=== PATIENT | female | born 1935 | race Caucasian/White ===

== ENCOUNTER 2016-11-11 01:20 | Inpatient (IN) | payer OTHER, MEDICARE ==
[~2016-11-11] VITALS: Ht 149.9 cm; Wt 54.4 kg
[2016-11-11] VITALS (8 sets, daily range): BP systolic 132–197; BP diastolic 56–94
--- NOTE | ~2016-11-11 | HC ---
[facility] [place] [address] CONSULTATION Name: KAREN JESUS Room #: 218-P ADM IN M.R.#: [id number] Admission: 11/11/16 Attend Phys: Kiana Holden MD Discharge: Date of : 33 Report #: [id number] THIS REPORT FOR: //name// CC: Anibal Holden HISTORY OF PRESENT ILLNESS: The patient is an 81-year-old woman with a complicated history including an inferior myocardial infarction in 2009 with associated ventricular fibrillation and prolonged resuscitative efforts. She made a complete and full recovery from this. She has had several angiogram since then, the most recently in 2011 which demonstrated moderate distal LAD stenosis, occluded diagonal branches, a previously stented marginal branch, which exhibited no evidence of restenosis and an occluded right coronary with collateralization. She has had pain off and on for many years that has been difficult to evaluate because of severe debilitating arthritis. She is not a candidate for stress testing because of immobility of her arms. Nevertheless on medical therapy, she has done well. Last night, she reports trouble sleeping. She developed shortness of breath and chest pressure on the right side of her chest. The pain has persisted since about 5:30 this morning. Nitroglycerin failed to relieve the pain. Her EKG demonstrated no acute ST or T-wave changes. Her initial troponin is negative. She has been around her oshlqye-ov-iwq who has pneumonia. She has had chills but denies fevers. She denies cough. ALLERGIES: Include CODEINE, NIACIN, PENICILLIN, SULFA, TEGRETOL. MEDICATIONS: Include Lasix 20 mg daily, sertraline 50 mg daily, Zantac, aspirin 81 mg daily, atorvastatin 40 mg daily. Her past history and medical records have been reviewed. Past history is notable for prior hysterectomy, arthritis, hypertension, coronary disease, diverticulosis. SOCIAL HISTORY: She has never been a smoker. . FAMILY HISTORY: Unremarkable for premature coronary disease. REVIEW OF SYSTEMS: All systems negative except as that noted above. PHYSICAL EXAMINATION: GENERAL: A pleasant elderly woman. She is tearful. VITAL SIGNS: Blood pressure is 160/69, heart rate of 80 and regular. She is afebrile, 4 feet 11 inches tall, 120 pounds. HEENT: There are neither xanthelasma, subcutaneous xanthomata, oral mucosal or digital cyanosis or kyphoscoliosis present. CHEST: Clear to auscultation and percussion. CARDIOVASCULAR: Regular rate and rhythm with normal S1, S2. [place] [address] CONSULTATION Name: KAREN JESUS Room #: [facility] IN M.R.#: [id number] Admission: 11/11/16 Attend Phys: Kiana Holden MD Discharge: Date of : 33 Report #: [id number] ABDOMEN: Soft and nontender. EXTREMITIES: Without cyanosis, clubbing or edema. Radial pulses are 2+. NEUROLOGIC: She is alert with a nonfocal exam. LABORATORY DATA: EKG, sinus bradycardia. Nonspecific T-wave abnormality, poor septal R-wave progression. Sodium is 140, potassium 3.7, creatinine 1.3. White count 6.1, hemoglobin 11, hematocrit 34, platelet count 157. RADIOLOGICAL DATA: Chest x-ray demonstrates scarring at the bases. IMPRESSION: 1. Chest pain with mixed features for ischemia. 2. 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 3. Hypertension. 4. Chronic systolic heart failure, compensated. 5. Dyslipidemia. 6. Debilitating arthritis. RECOMMENDATIONS: 1. Serial cardiac enzymes. 2. Follow up electrocardiogram. 3. Echocardiogram with Doppler. Further thoughts will be forthcoming based on this evaluation. Thank you for asking me to participate in the patient's care. <ELECTRONICALLY SIGNED> By: Diogenes Evans MD, FACC 11/12/16 0909 0729 1139 Diogenes Evans MD, FACC /nt
--- NOTE | ~2016-11-11 | 2DMMODE ---
[facility] [place] [address] 2 D/M-MODE ECHOCARDIOGRAM Name: ANN MARIEKAREN JUJU Room #: 218-P ADM IN M.R.#: [id number] Admission: 11/11/16 Attend Phys: Kiana Holden MD Discharge: Date of : 33 Date of Service: 11/11/16 1423 Report #: [id number] THIS REPORT FOR: //name// APPROVED REPORT Study performed: 11/11/2016 11:13:07 EXAM: Comprehensive 2D, Doppler, and color-flow Echocardiogram Patient Location: Bedside Room #: 218 Blood Pressure: 146/68 mmHg HR: 48 bpm Other Information Study Quality: Adequate Indications Cardiomyopathy Chest Pain Hypertension/HDD 2D Dimensions RVDd: 35.94 mm IVC: 16.00 mm Volumes Left Atrial Volume (Systole) Single Plane 4CH: 32.30 mL Single Plane 2CH: 42.01 mL LA ESV Index: 28.00 mL/m2 Aortic Valve AoV Peak Tano.: 2.01 m/s AO Peak Gr.: 16.55 mmHg LV Max P.08 mmHg LV Max: 0.88 m/s Mitral Valve E/A Ratio: 0.5 MV Decel. Time: 467.39 ms MV E Max Tano.: 0.46 m/s MV A Tano.: 0.92 m/s MV PHT: 135.54 ms [facility] [address] [place] [address] 2 D/M-MODE ECHOCARDIOGRAM Name: KAREN JESUS Room #: 218-P ADM IN M.R.#: [id number] Admission: 11/11/16 Attend Phys: Kiana Holden MD Discharge: Date of : 33 Date of Service: 11/11/16 1423 Report #: [id number] Pulmonary Valve PV Peak Tano.: 1.13 m/s PV Peak Gr.: 5.09 mmHg Pulmonary Vein P Vein S: 27.0 m/s P Vein D: 19.4 m/s P Vein A Dur.: 23.1 m/s PVa Duration: 111 Tricuspid Valve TR Peak Tano.: 2.60 m/s RAP Estimate: 5.00 mmHg TR Peak Gr.: 27.13 mmHg Left Ventricle The left ventricle is normal size. There is hypokinesis in the apex wall. There is hypokinesis in the septal wall. There is hypokinesis in the inferior wall. There is normal left ventricular wall thickness. Left ventricular systolic function is moderately decreased. LVEF is 40-45%. Grade I - abnormal relaxation pattern. Right Ventricle The right ventricle is normal size. The right ventricular systolic function is normal. Atria The left atrium size is normal. The right atrium size is normal. Aortic Valve Aortic valve is calcified. Mitral Valve The mitral valve is normal in structure. Mild mitral regurgitation. No evidence of mitral valve stenosis. Tricuspid Valve The tricuspid valve is normal in structure. There is mild tricuspid regurgitation. The right atrial pressure is estimated at 5 mmHg. There is no pulmonary hypertension. The estimated PAP was 32 mmHg. Pulmonic Valve The pulmonary valve is normal in structure. Trace pulmonic regurgitation. Great Vessels [facility] [address] [place] [address] 2 D/M-MODE ECHOCARDIOGRAM Name: KAREN JESUS Room #: 218-[facility] IN M.R.#: [id number] Admission: 11/11/16 Attend Phys: Kiana Holden MD Discharge: Date of : 33 Date of Service: 11/11/16 1423 Report #: [id number] The aortic root is normal in size. IVC is normal in size and collapses >50% with inspiration. Pericardium There is no pericardial effusion. <Conclusion> Left ventricular systolic function is moderately decreased. There is hypokinesis in the septum and inferior marquez. EF 40-45%. Grade I diastolic dysfunction Aortic valve is calcified, mild stenosis. No insufficiency. The mitral valve is normal in structure. Mild mitral regurgitation. Pulmonary artery pressure of 35mmHg There is no pericardial effusion. <ELECTRONICALLY SIGNED> By: Diogenes Evans MD, [facility] 11/11/16 1423 1423 1423 Diogenes Evans MD, FACC /INF
--- NOTE | ~2016-11-11 | EKG ---
[place] [address] [facility] [place] [address] ELECTROCARDIOGRAM REPORT Name: VIVI JESUSLINE JUJU Room #: 218-P ADM IN M.R.#: [id number] Admission: 11/11/16 Attend Phys: Kiana Holden MD Discharge: Date of : 33 Report #: [id number] THIS REPORT FOR: //name// [facility] ED Test Date: 2016-11-11 Test Time: 01:28:50 Pat Name: KAREN JESUS Department: Room: 218 Gender: F Nurseryperson: PRINCESS : 1935 Requested By: Beatriz Vidal Order Number: [id number] MD: Diogenes Evans Measurements Intervals [place] Rate: 56 P: -7 [place]: 161 QRS: -26 QRSD: 94 T: 120 QT: 399 QTc: 386 Interpretive Statements Sinus rhythm LVH by voltage Inferior infarct, old Septal infarct, age indeterminate Compared to ECG 06/25/2016 20:58:56 nonspecific changes in the ST-T wave segments Electronically Signed On 11-11-2016 9:26:41 CDT by Diogenes Evans [email or web address] <ELECTRONICALLY SIGNED> By: Diogenes Evans MD, [facility] 11/11/16 0926 0128 0128 Diogenes Evans MD, [facility] /EPI
--- NOTE | ~2016-11-11 | D ---
[facility] [place] [address] DISCHARGE SUMMARY Name: KAREN JESUS Room #: 218-P [facility] IN M.R.#: [id number] Admission: 11/11/16 Attend Phys: Kiana Holden MD Discharge: 11/12/16 Date of : 33 Report #: [id number] THIS REPORT FOR: //name// CC: Anibal Holden DATE OF SERVICE: 11/12/2016 DATE OF ADMISSION: 11/11/2016. DATE OF DISCHARGE: 11/12/2016. PRIMARY CARE PHYSICIAN: Anibal Bob M.D. DISCHARGE DIAGNOSES: 1. Chest pain, likely secondary to hypertensive urgency, now resolved. 2. Coronary artery disease with prior stenting. 3. Moderate ischemic cardiomyopathy. 4. Chronic systolic heart failure. 5. Dyslipidemia. 6. Arthritis. 7. Thyroid nodule. 8. Symptomatic hemorrhoids, treated in the hospital. CONSULTS: Cardiology. PROCEDURES: None. HOSPITAL COURSE: The patient is an 81-year-old female with a history of coronary artery disease, prior stents, ischemic cardiomyopathy and chronic systolic CHF, who presented to the ER secondary to chest pain. Please see details of admission dictated by on 11/11. Workup in the ER included negative EKG and cardiac enzymes. However, pressures were elevated in the 190s. She was admitted and cardiology was consulted. Since admission, she has had no further chest pain. D-dimer came back elevated and a CT angio was done that was negative for anything acute, other than thyroid nodule. She had a 2D echo that showed no new changes, although she does have ischemic cardiomyopathy with an ejection fraction of 40% to 45%, with mild mitral regurgitation and mild tricuspid regurgitation. Her only other complaint is rectal pain from her hemorrhoids. She has had procedure done in the past that was not successful in eliminating the pain. She was requesting to see a colorectal surgeon and seen. They recommended that she follow up with primary care doctor in this regards. Otherwise, she will also follow up with primary care doctor for thyroid ultrasound as well. [address] [address] DISCHARGE SUMMARY Name: KAREN JESUS Room #: 218-P [facility] IN M.R.#: [id number] Admission: 11/11/16 Attend Phys: Kiana Holden MD Discharge: 11/12/16 Date of : 33 Report #: [id number] DISCHARGE DISPOSITION: To home. DISCHARGE PHYSICAL EXAMINATION: VITAL SIGNS: Temperature of 97, pulse 54, blood pressure 184/80 and O2 sat is 97% on room air. GENERAL: She is awake, alert, answering question appropriately, no acute respiratory distress. HEENT: Normocephalic, atraumatic. Pupils are equal. NECK: Supple. CARDIOVASCULAR: Regular rate and rhythm. No murmurs. LUNGS: Clear to auscultation bilaterally. No crackles or wheezes. ABDOMEN: Soft. No distention or tenderness. EXTREMITIES: No edema. NEUROLOGIC: Nonfocal. DISCHARGE MEDICATIONS: Aspirin 81 daily, Lipitor 40 daily, Coreg 6.125, Cozaar 50 daily, 25 daily and MiraLax 17 grams daily. DIET: Cardiac, low-sodium, fluid-restricted diet. ACTIVITY: As tolerated. FOLLOWUP: With primary care in 1 week with repeat labs, thyroid ultrasound and a colorectal surgery referral. Discharge planning took 32 minutes. I explained her the discharge diagnoses, treatment plan and appropriate followup in detail. She had no other questions. By: 1156 1228 My Rashad Holden MD /nt
--- NOTE | ~2016-11-11 | EKG ---
[address] [place] [address] ELECTROCARDIOGRAM REPORT Name: KAREN JESUS Room #: 218- ADM IN M.R.#: [id number] Admission: 11/11/16 Attend Phys: Kiana Holden MD Discharge: Date of : 33 Report #: [id number] THIS REPORT FOR: //name// [facility] Test Date: 2016-11-12 Test Time: 07:30:24 Pat Name: KAREN JESUS Department: Room: 218 P Gender: F Fnp: navi : 1935 Requested By: Diogenes Evans Order Number: [id number] MD: Diogenes Evans Measurements Intervals [place] Rate: 51 P: 7 [place]: 175 QRS: -42 QRSD: 102 T: 46 QT: 402 QTc: 371 Interpretive Statements Sinus bradycardia Left anterior fascicular block Anterior infarct, old Baseline wander in lead(s) II,III,aVF Compared to ECG 11/11/2016 01:28:50 no significant change was found Electronically Signed On 11-12-2016 9:06:01 CDT by Diogenes Evans [email or web address] <ELECTRONICALLY SIGNED> By: Diogenes Evans MD, [facility] 11/12/16 0906 9 9 Diogenes Evans MD, [facility] /EPI
[~2016-11-11 01:20] MED LIST: ADULT LOW DOSE81 MG PO; ADVIL100 M2 PO; ALDACTONE25 MG OR; ALDACTONE25 MG PO; AMLODIPINE BESYL5 MG PO; ANALPRAM-HC 2.530 GM; APAP500 PO; ASPIRIN325 PO; B12INJ PO; CARDIZEM CD120 MG PO; CARVEDILOL25 MG PO; CARVEDILOL6.25 MG PO; CIPRO500 M1 PO; CIPRO500 MG PO; COREG PO; COZAAR 25 MG TA25 MG PO; COZAAR 50 MG TA50 M1 PO; COZAAR PO; FLAGYL500 MG PO; FUROSEMIDE 20 M20 MG PO; HYDROCORTISONE30 G9 RECTAL; HYZAAR PO; IBUPROFEN 200200 M1 PO; LASIX 20 MG TAB20 MG PO; LEVAQUIN 500 M500 MG PO; LIPITOR40 MG PO; NORCO 5-325 TA1 EACH PO; OMEPRAZOLE20 M2 PO; PAIN RELIEVER500 M3 PO; PLAVIX 75 MG TA75 MG; PLAVIX 75 MG TA75 MG PO; PRAVASTATIN SOD40 MG PO; VITAMIN B-12500 MCG PO; ZANTAC 150MG T150 MG PO; ZOLOFT 50 MG TA50 M1 PO; ZOLOFT50 MG PO
[2016-11-11 01:43] LABS: ABSOLUTE NEUTROPHILS 2.9 thou/uL (1.4-8.2); BASOPHILS 1.1 % (0.0-2.0); EOSINOPHILS 2.9 % (0.0-3.0); HEMATOCRIT 34.1 % (37.0-47.0); HEMOGLOBIN 11.3 gm/dL (12.0-15.0); LYMPHOCYTES 38.7 % (24.0-44.0); MCH 29.6 pg (26.0-34.0); MCHC 33.3 g/dL (28.0-37.0); MCV 88.9 fL (80.0-100.0); MONOCYTES 9.3 % (1.0-8.0); PLATELET COUNT 157 thou/uL (150-400); RBC 3.83 mil/uL (4.20-5.00); RDW 15.2 % (10.5-14.5); WBC 6.1 thou/uL (4.0-11.0)
[2016-11-11 01:51] LABS: ANION GAP 11 mmol/L (7-16); BUN 33 mg/dL (7-18); CHLORIDE 104 mmol/L (98-107); CO2 25 mmol/L (21-32); CREATININE 1.3 mg/dL (0.6-1.0); GLUCOSE 92 mg/dL (74-106); POTASSIUM 3.7 mmol/L (3.5-5.1); SODIUM 140 mmol/L (136-145)
[2016-11-11 01:52] LABS: MANUAL DIFF NO
[2016-11-11 01:56] LABS: APTT 26.1 Seconds (24.5-32.8); INR 1.1; PROTIME 11.3 Seconds (9.3-11.4)
[2016-11-11 02:03] LABS: ALBUMIN 3.5 g/dL (3.4-5.0); ALKALINE PHOSPHATASE 113 U/L (46-116); NT-PRO BRAIN NAT PEPTIDE 716 pg/mL (<300); SGOT 19 U/L (15-37); SGPT 25 U/L (30-65); TOTAL BILIRUBIN 0.4 mg/dL (<0.1-1.0); TOTAL PROTEIN 6.7 g/dL (6.4-8.2); TROPONIN-I < 0.04 ng/mL (<0.04-0.07)
[2016-11-11] MEDS ORDERED: MYRBETRIQ25 MG PO (02:10)
[2016-11-11] MEDS ORDERED: MIRALAX17 G1 PO (04:05)
[2016-11-11 07:49] LABS: CHOLESTEROL 138 mg/dL (<200); HDL CHOLESTEROL 54 mg/dL (>40); LDL CHOLESTEROL 70 mg/dL (<100); TC:HDL 2.6 Ratio (Not establshd); TRIGLYCERIDE 73 mg/dL (<150); VLDL 15 mg/dL (<40)
[2016-11-12 04:09] LABS: HEMATOCRIT 31.7 % (37.0-47.0); HEMOGLOBIN 10.6 gm/dL (12.0-15.0); MCH 29.5 pg (26.0-34.0); MCHC 33.4 g/dL (28.0-37.0); MCV 88.3 fL (80.0-100.0); RBC 3.59 mil/uL (4.20-5.00); RDW 15.1 % (10.5-14.5); WBC 5.6 thou/uL (4.0-11.0)
[2016-11-12 04:14] LABS: CALCIUM 8.4 mg/dL (8.5-10.1); POTASSIUM 4.3 mmol/L (3.5-5.1)
[2016-11-12 05:00] VITALS: BP 147/77
[2016-11-12 07:30] VITALS: BP 184/80
[2016-11-12 10:08] VITALS: BP 184/80
[2016-11-12] MEDS ORDERED: ATORVASTATIN CA40 MG PO (10:14)
[2016-11-12] MEDS ORDERED: COZAAR 50 MG TA50 M2 PO (10:14)
[2016-11-12] MEDS ORDERED: ASPIR 8181 MG PO (10:14)
[2016-11-12 14:16] VITALS: BP 184/80
== END 2016-11-12 11:00 | disposition home or self-care (01) | DRG 304 ==
LOC: ER 01:20 → 2N 02:30 → EROBS 02:30 → 2N 02:54
PROVIDERS: Emergency Medicine; Family Medicine; Nurse Practitioner
DX: I16.0 Hypertensive urgency (principal); N17.0 Acute kidney failure with tubular necrosis; I50.22 Chronic systolic (congestive) heart failure; Z96.653 Presence of artificial knee joint, bilateral; M54.30 Sciatica, unspecified side; K57.90 Diverticulosis of intestine, part unspecified, without perforation or abscess without bleeding; R53.81 Other malaise; I11.0 Hypertensive heart disease with heart failure; I25.5 Ischemic cardiomyopathy; I25.10 Atherosclerotic heart disease of native coronary artery without angina pectoris; M19.90 Unspecified osteoarthritis, unspecified site; E04.1 Nontoxic single thyroid nodule; K64.8 Other hemorrhoids; E78.5 Hyperlipidemia, unspecified; Z95.5 Presence of coronary angioplasty implant and graft; Z82.49 Family history of ischemic heart disease and other diseases of the circulatory system; I25.2 Old myocardial infarction; Z88.6 Allergy status to analgesic agent; Z88.1 Allergy status to other antibiotic agents; Z88.8 Allergy status to other drugs, medicaments and biological substances; Z88.0 Allergy status to penicillin; Z88.2 Allergy status to sulfonamides; Z90.710 Acquired absence of both cervix and uterus
CPT/HCPCS: 10081

== ENCOUNTER 2017-02-21 15:26 | Emergency (ER) | payer OTHER, MEDICARE ==
[~2017-02-21] VITALS: Ht 149.9 cm; Wt 54.4 kg
--- NOTE | ~2017-02-21 | EKG ---
[place] [address] [facility] [place] [address] ELECTROCARDIOGRAM REPORT Name: KAREN JESUS Room #: DEP [facility]#: [id number] Admission: 02/21/17 Attend Phys: Discharge: 02/21/17 Date of : 33 Report #: [id number] THIS REPORT FOR: //name// [facility] ED Test Date: 2017-02-21 Test Time: 15:32:06 Pat Name: KAREN JESUS Department: Room: Gender: F Field Service Supervisor: Cal FORTE : 1935 Requested By: Grant Patel Order Number: [id number] MD: Diogenes Evans Measurements Intervals [place] Rate: 55 P: [place]: QRS: -35 QRSD: 110 T: 90 QT: 453 QTc: 434 Interpretive Statements Sinus bradycardia Leftward axis Nonspecific T wave abnormality Compared to ECG 11/12/2016 07:30:24 No significant change was found Electronically Signed On 02-23-2017 8:32:55 CDT by Diogenes Evans [email or web address] <ELECTRONICALLY SIGNED> By: Diogenes Evans MD, [facility] 02/23/17 0832 31 31 Diogenes Evans MD, [facility] /EPI
[~2017-02-21 15:26] MED LIST changes: +ASPIR 8181 MG PO; +ATORVASTATIN CA40 MG PO; +COZAAR 50 MG TA50 M2 PO; +MIRALAX17 G1 PO; +MYRBETRIQ25 MG PO
[2017-02-21 15:53] LABS: ABSOLUTE NEUTROPHILS 3.1 thou/uL (1.4-8.2); BASOPHILS 1.1 % (0.0-2.0); EOSINOPHILS 2.7 % (0.0-3.0); HEMATOCRIT 33.5 % (37.0-47.0); HEMOGLOBIN 11.3 gm/dL (12.0-15.0); LYMPHOCYTES 28.6 % (24.0-44.0); MCH 30.2 pg (26.0-34.0); MCHC 33.6 g/dL (28.0-37.0); MCV 89.8 fL (80.0-100.0); MONOCYTES 10.7 % (1.0-8.0); PLATELET COUNT 163 thou/uL (150-400); POLYS 56.9 % (36.0-66.0); RBC 3.73 mil/uL (4.20-5.00); RDW 14.8 % (10.5-14.5); WBC 5.4 thou/uL (4.0-11.0)
[2017-02-21 15:58] LABS: MANUAL DIFF NO
[2017-02-21 16:03] LABS: ANION GAP 9 mmol/L (7-16); BUN 43 mg/dL (7-18); CALCIUM 8.7 mg/dL (8.5-10.1); CHLORIDE 106 mmol/L (98-107); CO2 28 mmol/L (21-32); CREATININE 1.5 mg/dL (0.6-1.0); GLUCOSE 115 mg/dL (74-106); POTASSIUM 3.9 mmol/L (3.5-5.1); SODIUM 143 mmol/L (136-145)
[2017-02-21 16:16] LABS: NT-PRO BRAIN NAT PEPTIDE 916 pg/mL (<300); TROPONIN-I < 0.04 ng/mL (<0.04-0.07)
== END 2017-02-21 19:11 | disposition home or self-care (01) ==
LOC: ER 15:26
PROVIDERS: Nurse Practitioner
DX: M06.811 Other specified rheumatoid arthritis, right shoulder (principal); I10 Essential (primary) hypertension; D25.9 Leiomyoma of uterus, unspecified; Z88.8 Allergy status to other drugs, medicaments and biological substances; Z96.653 Presence of artificial knee joint, bilateral; Z98.890 Other specified postprocedural states; Z88.5 Allergy status to narcotic agent; Z88.1 Allergy status to other antibiotic agents; Z88.2 Allergy status to sulfonamides; Z88.6 Allergy status to analgesic agent

== ENCOUNTER 2017-04-12 11:48 | Emergency (ER) | payer OTHER, MEDICARE ==
[~2017-04-12] VITALS: Ht 162.6 cm; Wt 59.0 kg
[2017-04-12] MEDS ORDERED: NORCO 5-325 TA1 EACH PO (13:04)
== END 2017-04-12 13:35 | disposition home or self-care (01) ==
LOC: ER 11:48
DX: M19.012 Primary osteoarthritis, left shoulder (principal); I11.9 Hypertensive heart disease without heart failure; I25.10 Atherosclerotic heart disease of native coronary artery without angina pectoris; I25.2 Old myocardial infarction; Z96.653 Presence of artificial knee joint, bilateral; Z87.39 Personal history of other diseases of the musculoskeletal system and connective tissue; Z98.890 Other specified postprocedural states; Z88.5 Allergy status to narcotic agent; Z88.1 Allergy status to other antibiotic agents; Z88.7 Allergy status to serum and vaccine; Z88.0 Allergy status to penicillin; Z88.2 Allergy status to sulfonamides; Z88.8 Allergy status to other drugs, medicaments and biological substances

== ENCOUNTER 2017-08-14 14:12 | Emergency (ER) | payer OTHER, MEDICARE ==
[~2017-08-14] VITALS: Ht 149.9 cm; Wt 54.5 kg
[2017-08-14 14:54] VITALS: BP 168/88
[2017-08-14 15:36] LABS: URINE BILIRUBIN NEGATIVE (Negative); URINE BLOOD 1+ (Negative); URINE CLARITY CLEAR; URINE COLOR YELLOW; URINE GLUCOSE-RANDOM* NEGATIVE (Negative); URINE KETONES NEGATIVE (Negative); URINE LEUKOCYTES-REFLEX NEGATIVE (Negative); URINE NITRITE-REFLEX NEGATIVE (Negative); URINE PROTEIN (DIPSTICK) NEGATIVE (Negative); URINE SPECIFIC GRAVITY <= 1.005 (1.005-1.035); URINE UROBILINOGEN 0.2 E.U./dl (0.2-1.0)
[2017-08-14 15:42] LABS: MUCUS None Seen strn/LPF (None Seen); SQUAMOUS 0-3 Few /LPF (0-3)
[2017-08-14 15:43] LABS: BACTERIA-REFLEX None Seen /HPF (None Seen); CASTS None Seen /LPF (None Seen); CRYSTALS None Seen /LPF (None Seen); URINE RBC 0-2 Rare /HPF (0-2); URINE WBC-REFLEX 0-5 Rare /HPF (0-5)
[2017-08-14] MEDS ORDERED: PYRIDIUM200 MG PO (15:57)
== END 2017-08-14 16:20 | disposition home or self-care (01) ==
LOC: ER 14:12
PROVIDERS: Nurse Practitioner Family
DX: R30.0 Dysuria (principal); M19.90 Unspecified osteoarthritis, unspecified site; I10 Essential (primary) hypertension; Z96.653 Presence of artificial knee joint, bilateral; Z98.890 Other specified postprocedural states; Z88.8 Allergy status to other drugs, medicaments and biological substances; Z88.5 Allergy status to narcotic agent; Z88.1 Allergy status to other antibiotic agents; Z88.6 Allergy status to analgesic agent; Z88.7 Allergy status to serum and vaccine; Z88.0 Allergy status to penicillin; Z88.2 Allergy status to sulfonamides

== ENCOUNTER 2017-08-23 13:39 | Emergency (ER) | payer OTHER, MEDICARE ==
[~2017-08-23] VITALS: Ht 157.5 cm; Wt 49.9 kg
--- NOTE | ~2017-08-23 | EKG ---
[place] [address] [address] [place] [address] ELECTROCARDIOGRAM REPORT Name: KAREN JESUS [facility] [id number] Admission: 08/23/17 Attend Phys: Discharge: 08/23/17 Date of : 33 Report #: [id number] THIS REPORT FOR: //name// [facility] ED Test Date: 2017-08-23 Test Time: 15:16:27 Pat Name: KAREN JESUS Department: Room: Gender: F Service Center Representative: Cal VELASQUEZ : 1935 Requested By: Tosin Bar Order Number: [id number] MD: Diogenes Evans Measurements Intervals [place] Rate: 52 P: 17 [place]: 159 QRS: -41 QRSD: 107 T: 57 QT: 432 QTc: 402 Interpretive Statements Sinus bradycardia Atrial premature complex Leftward axis Anteroseptal infarct, old Compared to ECG 02/21/2017 15:32:06 Atrial premature complex(es) now present Electronically Signed On 08-23-2017 17:21:44 BARREL WASHER MACHINE by Diogenes Evans [email or web address] <ELECTRONICALLY SIGNED> By: Diogenes Evans MD, [facility] 08/23/17 1107 1516 1516 Diogenes Evans MD, [facility] /EPI
[~2017-08-23 13:39] MED LIST changes: +PYRIDIUM200 MG PO
[2017-08-23 14:11] LABS: URINE BILIRUBIN NEGATIVE (Negative); URINE BLOOD NEGATIVE (Negative); URINE CLARITY CLEAR; URINE COLOR YELLOW; URINE GLUCOSE-RANDOM* TRACE (Negative); URINE KETONES NEGATIVE (Negative); URINE LEUKOCYTES-REFLEX NEGATIVE (Negative); URINE PROTEIN (DIPSTICK) NEGATIVE (Negative); URINE SPECIFIC GRAVITY <= 1.005 (1.005-1.035)
[2017-08-23 14:12] LABS: URINE NITRITE-REFLEX POSITIVE (Negative)
[2017-08-23 14:21] LABS: CASTS None Seen /LPF (None Seen); SQUAMOUS None Seen /LPF (0-3)
[2017-08-23 14:22] LABS: BACTERIA-REFLEX 1-9 Few /HPF (None Seen); CRYSTALS None Seen /LPF (None Seen); URINE RBC None Seen /HPF (0-2); URINE WBC-REFLEX 0-5 Rare /HPF (0-5)
[2017-08-23 15:34] LABS: ABSOLUTE NEUTROPHILS 3.6 thou/uL (1.4-8.2); EOSINOPHILS 1.8 % (0.0-3.0); HEMATOCRIT 34.4 % (37.0-47.0); HEMOGLOBIN 11.3 gm/dL (12.0-15.0); LYMPHOCYTES 21.2 % (24.0-44.0); MCH 29.9 pg (26.0-34.0); MCHC 32.8 g/dL (28.0-37.0); MCV 91.2 fL (80.0-100.0); MONOCYTES 9.6 % (1.0-8.0); PLATELET COUNT 215 thou/uL (150-400); POLYS 66.4 % (36.0-66.0); RBC 3.77 mil/uL (4.20-5.00); RDW 14.7 % (10.5-14.5); WBC 5.4 thou/uL (4.0-11.0)
[2017-08-23 15:41] LABS: CREATININE 1.3 mg/dL (0.6-1.0)
[2017-08-23] MEDS ORDERED: KEFLEX500 M1 PO (15:55)
[2017-08-23 16:35] VITALS: BP 160/88
== END 2017-08-23 16:52 | disposition home or self-care (01) ==
LOC: ER 13:39
PROVIDERS: Emergency Medicine
DX: N39.0 Urinary tract infection, site not specified (principal); I10 Essential (primary) hypertension; M19.90 Unspecified osteoarthritis, unspecified site; Z96.653 Presence of artificial knee joint, bilateral; M54.30 Sciatica, unspecified side; Z88.0 Allergy status to penicillin; Z88.2 Allergy status to sulfonamides; Z88.1 Allergy status to other antibiotic agents

== ENCOUNTER 2017-09-09 10:59 | Inpatient (IN) | payer OTHER, MEDICARE ==
[~2017-09-09] VITALS: Ht 149.9 cm; Wt 52.2 kg
--- NOTE | ~2017-09-09 | 2DMMODE ---
[facility] [address] [place] [address] 2 D/M-MODE ECHOCARDIOGRAM Name: ANN MARIEKAREN JUJU Room #: 350-P ADM IN M.R.#: [id number] Admission: 09/09/17 Attend Phys: Sammy Guerrero, Discharge: Date of : 33 Date of Service: 09/09/17 1648 Report #: [id number] THIS REPORT FOR: //name// APPROVED REPORT Study performed: 09/09/2017 15:16:00 EXAM: Comprehensive 2D, Doppler, and color-flow Echocardiogram Patient Location: Bedside Room #: 350 Status: routine BSA: 1.51 HR: 50 bpm BP: 145/55 mmHg Other Information Study Quality: Adequate Indications Dyspnea CAD Hypertension/HDD 2D Dimensions RVDd: 29.96 mm LVEF(%): 53.53 (>50%) IVSd: 14.70 (7-11mm) LVOT Diam: 17.37 (18-24mm) LVDd: 39.23 mm PWd: 14.54 (7-11mm) Ascending Ao: 29.67 (22-36mm) LVDs: 28.57 (25-40mm) Aortic Root: 29.64 mm Tellez's LVEF: 53.53 % Volumes Left Atrial Volume (Systole) Single Plane 4CH: 66.51 mL Single Plane 2CH: 32.07 mL LA ESV Index: 34.00 mL/m2 Aortic Valve AoV Peak Tano.: 2.39 m/s AO Peak Gr.: 22.92 mmHg LVOT Max P.97 mmHg AO Mean Gr.: 10.00 mmHg LVOT Mean P.71 mmHg AO V2 Mean: 1.42 m/s LVOT Max V: 1.00 m/s AO V2 VTI: 55.52 cm LVOT Mean V: 0.59 m/s DIONI (VTI): 1.18 cm2 LVOT V1 VTI: 27.64 cm DIONI Vmax: 0.99 cm2 [facility] [place] [address] [place] [address] 2 D/M-MODE ECHOCARDIOGRAM Name: KAREN JESUS Room #: 350-[facility] IN .R.#: [id number] Admission: 09/09/17 Attend Phys: Sammy Guerrero, Discharge: Date of : 33 Date of Service: 09/09/17 1648 Report #: [id number] SV (LVOT): 65.47 mL Mitral Valve E/A Ratio: 0.6 MV Decel. Time: 347.51 ms MV E Max Tano.: 0.58 m/s MV A Tano.: 1.02 m/s MV PHT: 100.78 ms IVRT: 147.64 ms Pulmonary Valve PV Peak Tano.: 0.82 m/s PV Peak Gr.: 2.68 mmHg Pulmonary Vein P Vein S: 0.57 m/s P Vein A: 0.29 m/s P Vein D: 0.44 m/s P Vein A Dur.: 170.7 msec P Vein S/D Ratio: 1.30 Tricuspid Valve TR Peak Tano.: 2.70 m/s RAP Estimate: 8.00 mmHg TR Peak Gr.: 29.20 mmHg PA Pressure: 38.00 mmHg Left Ventricle The left ventricle is normal size. Moderate concentric left ventricular hypertrophy. The left ventricular systolic function is normal. The left ventricular ejection fraction is within the normal range. LVEF is 55-60%. Mild diastolic dysfunction is present (impaired relaxation pattern). Right Ventricle The right ventricle is normal size. The right ventricular systolic function is normal. Atria Left atrium is at the upper limits of normal. The right atrium size is normal. Aortic Valve Aortic valve is calcified. Trace aortic regurgitation. There is mild valvular aortic stenosis. Calculated aortic valve area is 1.3 cm2 with maximum pressure gradient of 23 mmHg and mean pressure gradient of 10 mmHg. Mitral Valve Mitral valve leaflets are thickened. [place] [address] 2 D/M-MODE ECHOCARDIOGRAM Name: KAREN JESUS Room #: 350-P [facility] IN M.R.#: [id number] Admission: 09/09/17 Attend Phys: Sammy Guerrero, Discharge: Date of : 33 Date of Service: 09/09/17 1648 Report #: [id number] calcification. Mild to moderate mitral regurgitation. No evidence of mitral valve stenosis. Tricuspid Valve The tricuspid valve is normal in structure. Mild tricuspid regurgitation. PAP is estimated at 38 mmHg. Pulmonic Valve The pulmonary valve is normal in structure. Mild pulmonic regurgitation. Great Vessels The aortic root is normal in size. The inferior vena cava is not well visualized. Pericardium There is no pericardial effusion. <Conclusion> The left ventricle is normal size. Moderate concentric left ventricular hypertrophy. LVEF is 55-60%. Mild diastolic dysfunction is present (impaired relaxation pattern). The right ventricular systolic function is normal. Left atrium is at the upper limits of normal. Aortic valve is calcified. There is mild valvular aortic stenosis. Calculated aortic valve area is 1.3 cm2 with maximum pressure gradient of 23 mmHg and mean pressure gradient of 10 mmHg. Mild to moderate mitral regurgitation. Mitral valve leaflets are thickened. Mild mitral annular calcification. Mild tricuspid regurgitation. PAP is estimated at 38 mmHg. The aortic root is normal in size. There is no pericardial effusion. <ELECTRONICALLY SIGNED> By: Benjamin Virgen MD, FACC 09/09/171647 47 47 Benjamin Virgen MD, FACC /INF
--- NOTE | ~2017-09-09 | S ---
[facility] [place] [address] SURGICAL PATH RPT PROCEDURE Name: KAREN YOUNGER Room #: 350-P [facility] IN M.R.#: [id number] Admission: 09/10/17 Date of : 31 Discharge: 09/12/17 Report #: [id number] Path Case #: [id number] PATHOLOGY REPORT COLLECTION DATE: 09/10/2017 RECEIVED DATE: 09/10/2017 SUBMITTING PHYS: Dr. Ian Lorenzana OTHER PHYS: Dr. Sammy Evans SPECIMEN(S) RECEIVED: A.Small bowel B.Gastric * * * * * * * * * * * * FINAL DIAGNOSIS: A. Small bowel mucosa, small bowel, rule out celiac, endoscopic biopsy: - Mild focal acute inflammation with fundic-type metaplasia, compatible with mild peptic duodenitis. B. Gastric mucosa, gastric, rule out H. pylori, endoscopic biopsy: - Moderate reactive gastropathy with features of active gastritis. - Negative for intestinal metaplasia or atrophy. - Negative for Helicobacter pylori. (IUV:leatha; 09/13/2017) COMMENT: Well-controlled Helicobacter pylori immunohistochemical stain performed on block B1 - Negative. The features identified in the gastric mucosa biopsy tissue are suggestive of those of an ulcer bed. An active ulcer is not identified. There is no dysplasia or malignancy present. (IUV:leatha; 09/13/2017) PATHOLOGIST: Mary Irvin M.D. REPORT ELECTRONICALLY SIGNED BY: Mary Irvin M.D. DATE/TIME: 09/13/2017 13:28 * * * * * * * * * * * * GROSS PATHOLOGY: A. Received in formalin labeled "Karen Younger, BX small bowel, rule out celiac," is a segment of bell soft tissue measuring 0.4 cm in maximum dimension. The specimen is submitted entirely in cassette A1. B. Received in formalin labeled "Karen Schaeffero, gastric BX, rule out H. pylori," are 2 segments of bell soft tissue measuring 0.6 x 0.2 x 0.2 cm in aggregate dimensions and measuring 0.3 cm each in maximum [facility] [place] [address] SURGICAL PATH RPT PROCEDURE Name: KAREN YOUNGER Room #: 350-P [facility] IN M.R.#: [id number] Admission: 09/10/17 Date of : 31 Discharge: 09/12/17 Report #: [id number] Path Case #: [id number] dimension. The specimen is submitted entirely in cassette B1. (TSD; 09/10/2017) CLINICAL HISTORY: Pre-OP DX: Abdominal pain Post-OP DX: Hiatal hernia, gastric erosions, duodenitis INITIAL CPT CODE(S): A; 16829 B; 30116, 96542 Professional services performed by [facility] at [facility] [address], [place] [address] Technical services performed by [facility] at [address] [place] [address], [address], [place] [address]. [facility] [address] [place] [address] PHONE: [phone] DIRECTOR: Andrzej Lott M.D. * * * END OF REPORT * * *
--- NOTE | ~2017-09-09 | EKG ---
[address] [place] [address] ELECTROCARDIOGRAM REPORT Name: KAREN JESUS Room #: 350-[facility]..#: [id number] Admission: 09/09/17 Attend Phys: Sammy Guerrero DO Discharge: Date of : 33 Report #: [id number] THIS REPORT FOR: //name// [facility] ED Test Date: 2017-09-09 Test Time: 12:00:08 Pat Name: KAREN JESUS Department: Room: 350 Gender: F Deposit Refund Clerk: SALLY : 1935 Requested By: Jordan Giron Order Number: [id number] MD: Dany Vazquez Measurements Intervals [place] Rate: 52 P: 22 [place]: 173 QRS: -32 QRSD: 101 T: 89 QT: 408 QTc: 380 Interpretive Statements Sinus rhythm Left axis deviation Anteroseptal infarct, old Electronically Signed On 09-09-2017 16:29:46 TIRE INSPECTOR by Dany Vazquez [email or web address] <ELECTRONICALLY SIGNED> By: Dany Vazquez MD 09/09/[address] [facility] 99 Dany Vazquez MD /EMILIA
--- NOTE | ~2017-09-09 | HC ---
[facility] [place] [address] CONSULTATION Name: BERENICEKAREN GARDNER Room #: 350-P [facility] M.R.#: [id number] Admission: 09/09/17 Attend Phys: Sammy Guerrero DO Discharge: Date of : 31 Report #: [id number] THIS REPORT FOR: //name// CC: Diogenes Guerrero REASON FOR CONSULTATION: Chest pain. 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 She made a complete recovery from this. She has had several angiograms since. She has known moderate distal LAD stenosis, occluded diagonal branches and a previously-placed circumflex stent. The right coronary is occluded with collaterals. She has severe debilitating arthritis and is not a candidate for stress testing because of immobility of her shoulder and arms. Nevertheless, she has done quite well with medical therapy. Last night, she had a piece of chocolate cake and toast, she felt as if the food was stuck in her mid esophagus. She had some hot tea, which seemed to make the pain worse and ultimately the pain dissipated and resolved. She had recurrence of the same pain while eating breakfast this morning. Given the severity of the pain, she presented to the Emergency Department, where she was admitted for further evaluation. Serial cardiac enzymes are normal. EKG demonstrated sinus bradycardia with evidence of a prior anterior septal infarct. She has commented that she has lost over 50 pounds. She denies acid brash. No heart failure symptoms including orthopnea, paroxysmal nocturnal dyspnea or lower extremity edema. MEDICATIONS: Include losartan 50 mg daily, carvedilol 6.25 mg daily, atorvastatin 40 mg daily and a baby aspirin. 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 ALLERGIES: She is allergic to CODEINE, NIACIN, PENICILLIN, SULFA, and TEGRETOL. SOCIAL HISTORY: She has never been a smoker. for over 45 years. FAMILY HISTORY: Unremarkable for premature coronary disease. REVIEW OF SYSTEMS: All systems negative except as that noted above. PHYSICAL EXAMINATION: GENERAL: This is a pleasant woman in no distress. VITAL SIGNS: Blood pressure is 140/68, heart rate of 50 and regular. She is afebrile, 4 feet 11 inches tall, 115 pounds. HEENT: There are neither xanthelasma, subcutaneous xanthomata, [place] [address] CONSULTATION Name: KAREN JESUS Room #: [facility] M.R.#: [id number] Admission: 09/09/17 Attend Phys: Sammy Guerrero DO Discharge: Date of : 31 Report #: [id number] digital cyanosis or kyphoscoliosis present. CHEST: Clear to auscultation and percussion. CARDIAC: Regular rate and rhythm with normal S1, S2. Jugular venous pressure is not elevated. ABDOMEN: Soft and nontender. EXTREMITIES: Without cyanosis, clubbing or edema. Radial pulses are 2+. NEUROLOGIC: She is alert with a nonfocal exam. LABORATORY DATA: Sodium 137, potassium 4.3, creatinine 1.4, troponin of 0, proBNP of 404. White count 5.2, hemoglobin 10.5, platelet count 157. Chest x-ray demonstrates no acute process. IMPRESSION: 1. Chest pain consistent with esophageal pain. 2. Coronary artery disease with prior stenting. 3. Moderate ischemic cardiomyopathy. 4. Chronic systolic heart failure. 5. Hypertension. 6. Dyslipidemia. 7. Debilitating arthritis. RECOMMENDATIONS: 1. Continued use of losartan, carvedilol and atorvastatin. 2. Hold aspirin for now pending GI evaluation. 3. I doubt myocardial infarction or ischemia. I agree with a formal GI evaluation. At this point, no additional cardiovascular testing is needed. I have discussed these issues with the patient. Thank you for asking me to participate in her care. <ELECTRONICALLY SIGNED> By: Diogenes Evans MD, [facility] 09/10/17 0744 [id number] Diogenes Evnas MD, FACC /nt
[~2017-09-09 10:59] MED LIST changes: +KEFLEX500 M1 PO
[2017-09-09 11:00] VITALS: BP 152/70
[2017-09-09 12:04] LABS: URINE BILIRUBIN NEGATIVE (Negative); URINE BLOOD NEGATIVE (Negative); URINE CLARITY CLEAR; URINE COLOR YELLOW; URINE GLUCOSE-RANDOM* NEGATIVE (Negative); URINE KETONES NEGATIVE (Negative); URINE LEUKOCYTES-REFLEX NEGATIVE (Negative); URINE NITRITE-REFLEX NEGATIVE (Negative); URINE PROTEIN (DIPSTICK) NEGATIVE (Negative); URINE SPECIFIC GRAVITY 1.015 (1.005-1.035); URINE UROBILINOGEN 0.2 E.U./dl (0.2-1.0)
[2017-09-09 12:44] LABS: ABSOLUTE NEUTROPHILS 3.5 thou/uL (1.4-8.2); EOSINOPHILS 2.1 % (0.0-3.0); HEMATOCRIT 31.3 % (37.0-47.0); HEMOGLOBIN 10.5 gm/dL (12.0-15.0); LYMPHOCYTES 19.6 % (24.0-44.0); MCH 30.6 pg (26.0-34.0); MCHC 33.5 g/dL (28.0-37.0); MCV 91.5 fL (80.0-100.0); MONOCYTES 9.1 % (1.0-8.0); PLATELET COUNT 157 thou/uL (150-400); POLYS 68.2 % (36.0-66.0); RBC 3.42 mil/uL (4.20-5.00); RDW 15.2 % (10.5-14.5); WBC 5.2 thou/uL (4.0-11.0)
[2017-09-09 12:53] LABS: ANION GAP 7 mmol/L (7-16); BUN 37 mg/dL (7-18); CALCIUM 8.7 mg/dL (8.5-10.1); CHLORIDE 103 mmol/L (98-107); CO2 27 mmol/L (21-32); CREATININE 1.4 mg/dL (0.6-1.0); GLUCOSE 153 mg/dL (74-106); POTASSIUM 4.3 mmol/L (3.5-5.1); SODIUM 137 mmol/L (136-145)
[2017-09-09 13:00] LABS: APTT 24.4 Seconds (24.5-32.8); PROTIME 10.6 Seconds (9.3-11.4)
[2017-09-09 13:02] LABS: ALBUMIN 3.4 g/dL (3.4-5.0); MAGNESIUM 2.6 mg/dL (1.8-2.4); SGOT 22 U/L (15-37); SGPT 28 U/L (30-65); TOTAL BILIRUBIN 0.5 mg/dL (<0.1-1.0); TOTAL PROTEIN 6.5 g/dL (6.4-8.2); TROPONIN-I < 0.04 ng/mL (<0.06)
[2017-09-09 15:29] VITALS: BP 146/68
[2017-09-09 20:18] VITALS: BP 152/55
[2017-09-10 04:00] VITALS: BP 145/59
[2017-09-10 05:43] LABS: ABSOLUTE NEUTROPHILS 3.1 thou/uL (1.4-8.2); BASOPHILS 0.6 % (0.0-2.0); EOSINOPHILS 2.6 % (0.0-3.0); HEMATOCRIT 29.8 % (37.0-47.0); HEMOGLOBIN 9.7 gm/dL (12.0-15.0); MCH 29.9 pg (26.0-34.0); MCHC 32.6 g/dL (28.0-37.0); MCV 91.9 fL (80.0-100.0); MONOCYTES 10.2 % (1.0-8.0); PLATELET COUNT 154 thou/uL (150-400); POLYS 57.6 % (36.0-66.0); RBC 3.24 mil/uL (4.20-5.00); RDW 15.1 % (10.5-14.5); WBC 5.4 thou/uL (4.0-11.0)
[2017-09-10 05:52] LABS: CALCIUM 8.9 mg/dL (8.5-10.1); CREATININE 1.2 mg/dL (0.6-1.0); POTASSIUM 4.2 mmol/L (3.5-5.1)
[2017-09-10 07:45] VITALS: BP 150/66
[2017-09-10 16:00] VITALS: BP 159/68
[2017-09-10 19:11] VITALS: BP 121/57
[2017-09-11 03:24] VITALS: BP 169/64
[2017-09-11 03:58] LABS: CALCIUM 8.9 mg/dL (8.5-10.1); POTASSIUM 4.4 mmol/L (3.5-5.1)
[2017-09-11 07:59] VITALS: BP 152/68
[2017-09-11 10:31] LABS: ABSOLUTE NEUTROPHILS 3.4 thou/uL (1.4-8.2); BASOPHILS 0.6 % (0.0-2.0); EOSINOPHILS 1.9 % (0.0-3.0); HEMATOCRIT 30.1 % (37.0-47.0); HEMOGLOBIN 9.9 gm/dL (12.0-15.0); LYMPHOCYTES 20.7 % (24.0-44.0); MCH 30.3 pg (26.0-34.0); MCHC 32.9 g/dL (28.0-37.0); MCV 92.3 fL (80.0-100.0); MONOCYTES 8.7 % (1.0-8.0); PLATELET COUNT 137 thou/uL (150-400); POLYS 68.1 % (36.0-66.0); RBC 3.26 mil/uL (4.20-5.00); RDW 15.3 % (10.5-14.5)
[2017-09-11 11:35] VITALS: BP 150/62
[2017-09-11 19:33] VITALS: BP 125/58
[2017-09-12 03:37] VITALS: BP 139/50
[2017-09-12 03:42] LABS: ABSOLUTE NEUTROPHILS 3.3 thou/uL (1.4-8.2); BASOPHILS 0.5 % (0.0-2.0); EOSINOPHILS 2.9 % (0.0-3.0); HEMATOCRIT 29.1 % (37.0-47.0); HEMOGLOBIN 9.6 gm/dL (12.0-15.0); LYMPHOCYTES 28.3 % (24.0-44.0); MCH 30.2 pg (26.0-34.0); MCHC 33.1 g/dL (28.0-37.0); MCV 91.2 fL (80.0-100.0); PLATELET COUNT 136 thou/uL (150-400); POLYS 57.3 % (36.0-66.0); RBC 3.19 mil/uL (4.20-5.00); RDW 14.9 % (10.5-14.5); WBC 5.8 thou/uL (4.0-11.0)
[2017-09-12 04:02] LABS: CALCIUM 8.6 mg/dL (8.5-10.1); CREATININE 1.1 mg/dL (0.6-1.0); POTASSIUM 4.4 mmol/L (3.5-5.1)
[2017-09-12] MEDS ORDERED: PANTOPRAZOLE SO40 M1 PO (08:33)
[2017-09-12 09:16] VITALS: BP 139/50
[2017-09-12 09:19] VITALS: BP 139/50
== END 2017-09-12 09:52 | disposition home or self-care (01) | DRG 383 ==
LOC: ER 10:59 → EROBS 14:29 → 3W 15:12
PROVIDERS: Emergency Medicine; Family Medicine
PROC: 0DB88ZX Excision of Small Intestine, Via Natural or Artificial Opening Endoscopic, Diagnostic (ICD-10-PCS; principal; 2017-09-10)
PROC: 0DB68ZX Excision of Stomach, Via Natural or Artificial Opening Endoscopic, Diagnostic (ICD-10-PCS; principal; 2017-09-10)
PROC: 0D758ZZ Dilation of Esophagus, Via Natural or Artificial Opening Endoscopic (ICD-10-PCS; principal; 2017-09-10)
DX: K25.9 Gastric ulcer, unspecified as acute or chronic, without hemorrhage or perforation (principal); N17.1 Acute kidney failure with acute cortical necrosis; I50.22 Chronic systolic (congestive) heart failure; K21.9 Gastro-esophageal reflux disease without esophagitis; Z96.653 Presence of artificial knee joint, bilateral; I25.10 Atherosclerotic heart disease of native coronary artery without angina pectoris; I25.5 Ischemic cardiomyopathy; K57.90 Diverticulosis of intestine, part unspecified, without perforation or abscess without bleeding; E78.5 Hyperlipidemia, unspecified; M54.30 Sciatica, unspecified side; D64.9 Anemia, unspecified; K22.2 Esophageal obstruction; K44.9 Diaphragmatic hernia without obstruction or gangrene; I11.0 Hypertensive heart disease with heart failure; K31.9 Disease of stomach and duodenum, unspecified; K29.80 Duodenitis without bleeding; Z88.1 Allergy status to other antibiotic agents; Z88.2 Allergy status to sulfonamides; Z88.8 Allergy status to other drugs, medicaments and biological substances; Z79.899 Other long term (current) drug therapy; I25.2 Old myocardial infarction; Z95.5 Presence of coronary angioplasty implant and graft; Z90.49 Acquired absence of other specified parts of digestive tract; Z79.1 Long term (current) use of non-steroidal anti-inflammatories (NSAID); Z88.5 Allergy status to narcotic agent; Z88.0 Allergy status to penicillin
CPT/HCPCS: 10779; 62110; 62900; 70005

== ENCOUNTER 2017-10-14 08:20 | Emergency (ER) | payer OTHER, MEDICARE ==
[~2017-10-14] VITALS: Ht 149.9 cm; Wt 53.5 kg
--- NOTE | ~2017-10-14 | EKG ---
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: [facility] : 1935 Requested By: Jadiel Au Order Number: [id number] MD: Diogenes Evans Measurements Intervals [place] Rate: 50 P: -7 TX: 178 QRS: -42 QRSD: 90 T: 58 QT: 440 QTc: 402 Interpretive Statements Sinus bradycardia Inferior infarct, old Anterior infarct, old Compared to ECG 09/09/2017 12:00:08 No significant change was found Electronically Signed On 10-14-2017 17:40:13 CDT by Diogenes Evans [email or web address] <ELECTRONICALLY SIGNED> By: Diogenes Evans MD, [facility] 10/14/17 1740 [id number] Diogenes Evans MD, [facility] /EPI
[~2017-10-14 08:20] MED LIST changes: +PANTOPRAZOLE SO40 M1 PO
[2017-10-14 08:52] LABS: URINE BILIRUBIN NEGATIVE (Negative); URINE BLOOD NEGATIVE (Negative); URINE CLARITY CLEAR; URINE COLOR YELLOW; URINE GLUCOSE-RANDOM* NEGATIVE (Negative); URINE KETONES NEGATIVE (Negative); URINE LEUKOCYTES-REFLEX NEGATIVE (Negative); URINE NITRITE-REFLEX NEGATIVE (Negative); URINE PROTEIN (DIPSTICK) NEGATIVE (Negative); URINE SPECIFIC GRAVITY <= 1.005 (1.005-1.035); URINE UROBILINOGEN 0.2 E.U./dl (0.2-1.0)
[2017-10-14 09:00] LABS: ABSOLUTE NEUTROPHILS 3.4 thou/uL (1.4-8.2); BASOPHILS 1.1 % (0.0-2.0); EOSINOPHILS 1.7 % (0.0-3.0); HEMATOCRIT 35.2 % (37.0-47.0); HEMOGLOBIN 11.6 gm/dL (12.0-15.0); LYMPHOCYTES 24.5 % (24.0-44.0); MCH 30.2 pg (26.0-34.0); MCV 91.6 fL (80.0-100.0); MONOCYTES 9.1 % (1.0-8.0); PLATELET COUNT 182 thou/uL (150-400); POLYS 63.6 % (36.0-66.0); RBC 3.84 mil/uL (4.20-5.00); RDW 15.3 % (10.5-14.5); WBC 5.3 thou/uL (4.0-11.0)
[2017-10-14 09:08] LABS: CALCIUM 9.6 mg/dL (8.5-10.1); CREATININE 1.6 mg/dL (0.6-1.0); POTASSIUM 4.2 mmol/L (3.5-5.1)
[2017-10-14 09:14] LABS: ALBUMIN 3.8 g/dL (3.4-5.0); TOTAL BILIRUBIN 0.5 mg/dL (<0.1-1.0); TOTAL PROTEIN 7.2 g/dL (6.4-8.2)
[2017-10-14 09:56] VITALS: BP 153/74
== END 2017-10-14 09:58 | disposition home or self-care (01) ==
LOC: ER 08:20
PROVIDERS: Emergency Medicine
DX: M79.1 Myalgia (principal); M19.90 Unspecified osteoarthritis, unspecified site; I10 Essential (primary) hypertension; Z96.653 Presence of artificial knee joint, bilateral; Z98.890 Other specified postprocedural states; Z88.8 Allergy status to other drugs, medicaments and biological substances; Z88.5 Allergy status to narcotic agent; Z88.1 Allergy status to other antibiotic agents; Z88.7 Allergy status to serum and vaccine; Z88.0 Allergy status to penicillin; Z88.2 Allergy status to sulfonamides

== ENCOUNTER 2017-10-28 14:15 | Emergency (ER) | payer OTHER, MEDICARE ==
[~2017-10-28] VITALS: Ht 144.8 cm; Wt 52.2 kg
[2017-10-28 14:50] LABS: URINE BILIRUBIN NEGATIVE (Negative); URINE BLOOD NEGATIVE (Negative); URINE CLARITY CLEAR; URINE COLOR YELLOW; URINE GLUCOSE-RANDOM* NEGATIVE (Negative); URINE KETONES NEGATIVE (Negative); URINE LEUKOCYTES-REFLEX NEGATIVE (Negative); URINE NITRITE-REFLEX NEGATIVE (Negative); URINE PROTEIN (DIPSTICK) NEGATIVE (Negative); URINE SPECIFIC GRAVITY <= 1.005 (1.005-1.035); URINE UROBILINOGEN 0.2 E.U./dl (0.2-1.0)
[2017-10-28 16:06] LABS: CALCIUM 9.1 mg/dL (8.5-10.1); CREATININE 1.2 mg/dL (0.6-1.0); POTASSIUM 4.5 mmol/L (3.5-5.1)
[2017-10-28] MEDS ORDERED: URISPAS100 MG PO (16:26)
[2017-10-28] MEDS ORDERED: ATIVAN0.5 MG PO (17:22)
== END 2017-10-28 17:31 | disposition home or self-care (01) ==
LOC: ER 14:15
PROVIDERS: Emergency Medicine
DX: R35.0 Frequency of micturition (principal); R30.0 Dysuria; F41.9 Anxiety disorder, unspecified; I10 Essential (primary) hypertension; M19.90 Unspecified osteoarthritis, unspecified site

== ENCOUNTER 2017-11-05 01:45 | Emergency (ER) | payer OTHER, MEDICARE ==
[~2017-11-05] VITALS: Ht 144.8 cm; Wt 52.6 kg
[~2017-11-05 01:45] MED LIST changes: +ATIVAN0.5 MG PO; +URISPAS100 MG PO
[2017-11-05 02:32] LABS: ABSOLUTE NEUTROPHILS 4.5 thou/uL (1.4-8.2); EOSINOPHILS 0.8 % (0.0-3.0); HEMATOCRIT 32.6 % (37.0-47.0); HEMOGLOBIN 10.8 gm/dL (12.0-15.0); LYMPHOCYTES 22.7 % (24.0-44.0); MCH 30.3 pg (26.0-34.0); MCHC 33.3 g/dL (28.0-37.0); MONOCYTES 11.8 % (1.0-8.0); PLATELET COUNT 153 thou/uL (150-400); POLYS 63.7 % (36.0-66.0); RBC 3.58 mil/uL (4.20-5.00); RDW 14.7 % (10.5-14.5)
[2017-11-05 02:33] LABS: URINE BILIRUBIN NEGATIVE (Negative); URINE BLOOD NEGATIVE (Negative); URINE CLARITY CLEAR; URINE COLOR YELLOW; URINE GLUCOSE-RANDOM* NEGATIVE (Negative); URINE KETONES NEGATIVE (Negative); URINE LEUKOCYTES-REFLEX NEGATIVE (Negative); URINE NITRITE-REFLEX NEGATIVE (Negative); URINE PROTEIN (DIPSTICK) NEGATIVE (Negative); URINE SPECIFIC GRAVITY <= 1.005 (1.005-1.035); URINE UROBILINOGEN 0.2 E.U./dl (0.2-1.0)
[2017-11-05 02:40] LABS: CALCIUM 9.1 mg/dL (8.5-10.1); CREATININE 1.4 mg/dL (0.6-1.0); POTASSIUM 3.9 mmol/L (3.5-5.1)
[2017-11-05 02:46] LABS: ALBUMIN 3.5 g/dL (3.4-5.0); TOTAL BILIRUBIN 0.6 mg/dL (<0.1-1.0); TOTAL PROTEIN 6.2 g/dL (6.4-8.2)
[2017-11-05 05:49] LABS: LARGE PLATELETS OCCASIONAL; OVALOCYTES FEW
== END 2017-11-05 04:32 | disposition home or self-care (01) ==
LOC: ER 01:45
PROVIDERS: Emergency Medicine
DX: M25.511 Pain in right shoulder (principal); R41.0 Disorientation, unspecified; Z96.653 Presence of artificial knee joint, bilateral; Z98.890 Other specified postprocedural states; M19.90 Unspecified osteoarthritis, unspecified site; I10 Essential (primary) hypertension; Z88.8 Allergy status to other drugs, medicaments and biological substances; Z88.5 Allergy status to narcotic agent; Z88.7 Allergy status to serum and vaccine; Z88.0 Allergy status to penicillin; Z88.2 Allergy status to sulfonamides

== ENCOUNTER 2018-02-26 16:40 | Emergency (ER) | payer OTHER, MEDICARE | END 2018-02-26 17:16 | disposition left against medical advice (07) | LOC: ER 16:40 | DX: Z53.21 Procedure and treatment not carried out due to patient leaving prior to being seen by health care provider (principal) ==

== ENCOUNTER 2018-04-15 08:36 | Emergency (ER) | payer OTHER, MEDICARE ==
[~2018-04-15] VITALS: Ht 149.9 cm; Wt 52.6 kg
[2018-04-15 09:11] LABS: URINE BILIRUBIN NEGATIVE (Negative); URINE BLOOD NEGATIVE (Negative); URINE CLARITY CLEAR; URINE COLOR YELLOW; URINE GLUCOSE-RANDOM* NEGATIVE (Negative); URINE KETONES NEGATIVE (Negative); URINE LEUKOCYTES-REFLEX NEGATIVE (Negative); URINE NITRITE-REFLEX NEGATIVE (Negative); URINE PROTEIN (DIPSTICK) NEGATIVE (Negative); URINE UROBILINOGEN 0.2 E.U./dl (0.2-1.0)
[2018-04-15 09:59] LABS: CASTS None Seen /LPF (None Seen); MUCUS 0-3 Light strn/LPF (None Seen); SQUAMOUS 4-10 Moderate /LPF (0-3)
[2018-04-15 10:00] LABS: BACTERIA None Seen /HPF (None Seen); CRYSTALS None Seen /LPF (None Seen); URINE RBC None Seen /HPF (0-2); URINE WBC 0-5 Rare /HPF (0-5)
[2018-04-15] MEDS ORDERED: KEFLEX500 M1 PO (10:57)
== END 2018-04-15 11:33 | disposition home or self-care (01) ==
LOC: ER 08:36
PROVIDERS: Emergency Medicine
DX: R35.0 Frequency of micturition (principal); M19.90 Unspecified osteoarthritis, unspecified site; I10 Essential (primary) hypertension; I42.9 Cardiomyopathy, unspecified; Z88.8 Allergy status to other drugs, medicaments and biological substances; Z88.5 Allergy status to narcotic agent; Z88.1 Allergy status to other antibiotic agents; Z88.7 Allergy status to serum and vaccine; Z88.0 Allergy status to penicillin; Z88.2 Allergy status to sulfonamides; Z96.653 Presence of artificial knee joint, bilateral; Z98.890 Other specified postprocedural states